=== PATIENT | female | born 1980 | race Caucasian/White ===

== ENCOUNTER 2017-08-08 16:09 | Emergency (ER) | payer OTHER ==
[~2017-08-08] VITALS: Ht 162.6 cm; Wt 71.2 kg
[2017-08-08 16:22] VITALS: Ht 162.6 cm; Wt 71.2 kg
[2017-08-08 17:50] LABS: AMPHETAMINE QUAL UR NONE DETECTED (NEG <=1000)
[2017-08-08 18:29] LABS: BASOPHIL % 0.3 % (0-2); PLATELET COUNT 317 x10^3mcL (130-400); RED CELL DISTRIBUTION WIDTH 12.5 % (11.5-14.5)
[2017-08-08 18:37] LABS: CALCIUM 8.9 mg/dL (8.5-10.1); CARBON DIOXIDE 26.2 mmol/L (21-32); CHLORIDE SERUM 104 mmol/L (98-107); CREATININE SERUM 0.8 mg/dL (0.6-1.0); GFR1 > 60 mL/min; GLUCOSE SERUM 88 mg/dL (74-106); POTASSIUM SERUM 3.6 mmol/L (3.5-5.1); SODIUM SERUM 141 mmol/L (136-145)
[2017-08-08 18:50] LABS: ALBUMIN 3.6 g/dL (3.4-5.0); ALKALINE PHOSPHATASE 65 U/L (46-116); ALT/SGPT 36 U/L (14-59); AST/SGOT 29 U/L (15-37); BILIRUBIN TOTAL 0.22 mg/dL (0.20-1.00); T4(THYROXINE) 8.4 ug/dL (4.7-13.3); TOTAL PROTEIN, SERUM 7.4 g/dL (6.4-8.2)
[2017-08-08 21:01] VITALS: BP 107/58
== END 2017-08-08 21:01 | disposition home or self-care (01) ==
LOC: ED 16:09
PROVIDERS: Emergency Medicine
DX: R42 Dizziness and giddiness (principal); G47.00 Insomnia, unspecified; R00.2 Palpitations
CPT/HCPCS: 36415; 83880; J8597; Q0162